=== PATIENT | male | born 1990 | race Caucasian/White ===

== ENCOUNTER 2019-09-09 23:42 | Emergency (ER) | payer OTHER ==
--- NOTE | 2019-09-10 00:22 | EDM.PDOC ---
ED HPI GENERAL MEDICAL PROBLEM - General Chief Complaint: Laceration Stated Complaint: RIGHT THUMB LACERATION Time Seen by Provider: 09/09/19 23:53 Source of Information: Reports: Patient History Limitations: Reports: No Limitations - History of Present Illness INITIAL COMMENTS - FREE TEXT/NARRATIVE: TRIAGE NOTE -- Pt states was putting garbage into can and sustained laceration to R) thumb. Pt has 3 cm laceration to DIP joint,. [ End ] As above. No treatment prior to arrival. No identified risk factors. See additional descriptive information below. Lower Anterior Abdomen Pain Score (Numeric/FACES): 4 - Related Data Allergies Allergy/AdvReac Type Severity Reaction Status Date / Time codeine AdvReac Vomiting Verified 09/09/19 23:51 Home Meds: Home Meds . [No Known Home Meds] 09/09/19 [History] Past Medical History - Past Surgical History HEENT Surgical History: Reports: Tonsillectomy Social & Family History - Tobacco Use Tobacco Use Within Last Twelve Months: Smokeless Tobacco ED ROS GENERAL - Review of Systems Review Of Systems: Comprehensive ROS is negative, except as noted in HPI. ED EXAM, SKIN/RASH Exam: See Below Exam Limited By: No Limitations General Appearance: Alert, WD/WN, No Apparent Distress Eye Exam: Bilateral Eye: EOMI Ears: Normal External Exam Nose: Normal Inspection Throat/Mouth: Normal Inspection Head: Atraumatic, Normocephalic Neck: Normal Inspection, Supple Respiratory/Chest: No Respiratory Distress, Lungs Clear Cardiovascular: Regular Rate, Rhythm GI/Abdominal: Soft, Non-Tender Back Exam: Normal Inspection Extremities: Normal Inspection Neurological: Alert, Oriented Psychiatric: Normal Affect Skin: Warm, Dry Comments: There is a superficial 3 cm diagonal laceration across the interphalangeal joint of the right thumb. Neurovascular tendon intact. Laceration is quite superficial. It is clean. No debris. No foreign body. No bleeding. Course - Vital Signs Last Recorded V/S: Last Vital Signs Temp 36.1 C 09/09/19 23:51 Pulse 94 09/09/19 23:51 Resp 18 09/09/19 23:51 BP 133/90 09/09/19 23:51 Pulse Ox 95 09/09/19 23:51 - Re-Assessments/Exams Free Text/Narrative Re-Assessment/Exam: 09/10/19 00:21 The thumb was prepped with antibiotic cleaner window and was closed with Steri-Strips with a bead of Dermabond on both sides to provide additional adhesion for the Steri-Strips. Patient tolerated well. No complications. Departure - Departure Time of Disposition: 00:22 Disposition: Home, Self-Care 01 Condition: Good Clinical Impression: Superficial laceration of right hand Qualifiers: Encounter type: initial encounter Qualified Code(s): S61.411A - Laceration without foreign body of right hand, initial encounter - Discharge Information Referrals: PCP,None [Primary Care Provider] - Additional Instructions: You have a superficial laceration of the right thumb. There is no damage to any deep structures such as tendons. As the wound was clean noncontaminated and superficial it was closed with a combination of skin glue and Steri-Strips. You can leave the Steri-Strips in place until they fall off by themselves. No antibiotic is prescribed because the wound is superficial and clean. However if there should be any fever redness pain swelling return to the ER immediately for further evaluation. Sepsis Event Note - Evaluation Sepsis Screening Result: No Definite Risk - Focused Exam Vital Signs: Vital Signs Temp Pulse Resp BP Pulse Ox 09/09/19 23:51 36.1 C 94 18 133/90 95 Date Exam was Performed: 09/10/19 Time Exam was Performed: 00:17
== END 2019-09-10 00:28 | disposition home or self-care (01) ==
LOC: JD.ED 23:42
DX: S61.411A Laceration without foreign body of right hand, initial encounter (principal); W26.9XXA Contact with unspecified sharp object(s), initial encounter; Z88.5 Allergy status to narcotic agent
CPT/HCPCS: 12002; 99282